=== PATIENT | female | born 2000 ===

== ENCOUNTER 2022-04-15 23:46 | Inpatient (IN) ==
[2022-04-16] MEDS ORDERED: Rocuronium Bromide 10 MG/ML (10ML VIAL) ONE (00:05)
[2022-04-16 00:25] LABS: Mean Corpuscular HGB CONC 33.5 g/dL (32.0-36.0); Mean Corpuscular Hemoglobin 30.4 pg (25.0-35.0); Mean Corpuscular Volume 90.7 fl (78.0-98.0); Mean Platelet Volume 10.1 fL (7.4-10.4); Platelet Count 289 10x3/uL (130-400); RBC Distribution Width 11.1 % (11.5-14.5); Red Blood Cell (RBC) Count 4.27 mill/uL (4.00-5.20); White Blood Cell (WBC) Count 18.9 10x3/uL (4.8-10.8)
[2022-04-16] MEDS ORDERED: Ketamine 50 MG/ML (10ML VIAL) ONE (00:31)
[2022-04-16 00:37] LABS: ALT (SGPT) 78 U/L (8-55); AST (SGOT) 191 U/L (5-30); Albumin 4.5 g/dL (3.5-5.0); Alkaline Phosphatase 105 U/L (40-100); Anion Gap 17 mmol/L (10-20); BUN (Urea Nitrogen) 8 mg/dL (8.4-21.0); Bilirubin, Total 0.5 mg/dL (0.2-1.2); Calc. Creatinine Clearance 0 mL/min (70-130); Calcium 8.6 mg/dL (7.8-10.44); Carbon Dioxide 18 mmol/L (22-29); Chloride 109 mmol/L (98-107); Estimated GFR 114; Globulin 3.1 g/dL (2.4-3.5); Glucose 193 mg/dL (70-105); Potassium 3.2 mmol/L (3.5-5.1); Protein, Total 7.6 g/dL (6.0-8.3); Sodium 141 mmol/L (136-145)
[2022-04-16 00:39] LABS: Acetaminophen Less than 10.0 mcg/mL (10.0-30.0); Alcohol 234 mg/dL (Less than 10); Salicylate Less than 8.0 mg/dL (15.0-30.0)
[2022-04-16] MEDS ORDERED: Fentanyl 100 MCG/2 ML VIAL ONE (00:41)
[2022-04-16] MEDS ORDERED: Fentanyl CADD 100 ML IV SCH (00:45)
[2022-04-16 01:08] LABS: Lymphocytes 51 % (28-48); MDiff Complete? YES; Monocytes 10 % (0-4); Neutrophil 38 % (31-61)
[2022-04-16 01:19] LABS: Bilirubin Negative (Negative); Blood, Urine Negative (Negative); Clarity Clear (Clear); Glucose, Urine (Dipstick) Normal (Negative); Ketone, Urine Negative (Negative); Leukocyte Negative Leu/uL (Negative); Nitrite Negative (Negative); Protein, Urine (Dipstick) Negative (Neg-Trace); Specific Gravity, Urine 1.007 (1.002-1.036); Urobilinogen Normal mg/dL (Less than 2); pH, Urine 5.5 (5.0-9.0)
[2022-04-16 01:26] LABS: Pregnancy Test - Urine (BHCG) Negative (Negative); Pregu Control Background? CLEAR/WHITE (CLR/WHITE); Pregu Control Bar Appear? YES (CONTROL BAR); Specific Gravity 1.007 (1.002-1.036)
[2022-04-16 01:28] LABS: Amphetamine Not Detected (NotDetected); Barbiturates Screen Not Detected (NotDetected); Benzodiazepine Screen Not Detected (NotDetected); Cocaine Metabolite Screen Not Detected (NotDetected); Methadone Not Detected (NotDetected); Methamphetamine Not Detected (NotDetected); Opiate Screen Not Detected (NotDetected); Oxycodone Screen Not Detected (NotDetected); Phencyclidine (PCP) Not Detected (NotDetected); THC/Cannabinoid Screen Detected (NotDetected); Tricyclic Screen Not Detected (NotDetected)
[2022-04-16 01:30] LABS: Actual Bicarbonate (HCO3a) 17.8 mEq/L (22-28); Analyzer IN Cardio ER; Base Excess (BEa) -3.8 mEq/L (-2.0 to +3.0); Carboxyhemoglobin (COHb) 0.3 gm% (0.0-3.0); Hemoglobin (Hb) 14.3 g/dL (11.4-15.4); O2 Tension (PaO2), arterial 423.8 mmHg (80.0-100.0); Potassium - ABG Lab 3.03 mmol/L (3.70-5.30); pH, Arterial 7.48 (7.35-7.45)
[2022-04-16 01:40] LABS: ALV-art Gradient -97.925 mmHg (0-20); CO2 Tension 24.5 mmHg (35.0-45.0); Puncture Site LRA
[2022-04-16] MEDS ORDERED: Piperacillin/Tazobactam 3.375 GM VIAL ONE (01:42)
[2022-04-16] MEDS ORDERED: Ondansetron PF 4 MG/2 ML Vial IVP PRN (01:46)
[2022-04-16] MEDS ORDERED: Acetaminophen 325 MG TAB PER TUBE PRN (01:46)
[2022-04-16 01:51] LABS: SARS-CoV-2 NAA Rapid Test Not Detected (NotDetected)
[2022-04-16] MEDS ORDERED: Electrolyte Replacement Protocol 1 EACH IVPB PRN (01:53)
[2022-04-16] MEDS ORDERED: Ventilator Sedation Protocol 1 EACH FS SCH (02:00)
[2022-04-16] MEDS ORDERED: Midazolam HCl 2 mg/2 ml Vial SLOW IVP PRN (02:03)
[2022-04-16] MEDS ORDERED: Propofol BOLUS 1,000 MG/100 ML VIAL IV PRN (02:15)
[2022-04-16] MEDS ORDERED: Propofol 1,000 MG/100 ML VIAL IV PRN (02:15)
[2022-04-16] MEDS ORDERED: Morphine 4 MG/ML VIAL SLOW IVP PRN (02:15)
[2022-04-16 02:20] LABS: Magnesium 2.4 mg/dL (1.7-2.2)
[2022-04-16] MEDS ORDERED: Thiamine HCl 200 MG/2 ML VIAL SLOW IVP SCH (03:00)
[2022-04-16] MEDS ORDERED: Sodium Chloride 0.9% 1,000 ML IV SCH (03:00)
[2022-04-16] MEDS: Potassium Chloride 20 MEQ in Premix Bag 1 BAG IVPB SCH ×2 (03:14→05:27)
[2022-04-16] MEDS: Sodium Chloride 0.9% 1,000 ML IV SCH ×2 (03:19→13:28)
[2022-04-16 03:46] LABS: #Basophils 0.1 thou/uL (0.0-0.2); #Lymphocytes 1.6 thou/uL (1.20-3.40); #Monocytes 0.8 thou/uL (0.11-0.59); #Neutrophils 8.3 thou/uL (1.40-6.50); %Basophils 0.5 % (0.0-1.0); %Eosinophils 0.1 % (0.0-10.0); %Lymphocytes 14.8 % (28.0-48.0); %Monocytes 7.6 % (0.0-4.0); Hemoglobin 13.4 g/dL (12.0-16.0); Mean Corpuscular HGB CONC 32.3 g/dL (32.0-36.0); Mean Corpuscular Hemoglobin 29.6 pg (25.0-35.0); Mean Corpuscular Volume 91.6 fl (78.0-98.0); Mean Platelet Volume 10.2 fL (7.4-10.4); Platelet Count 177 10x3/uL (130-400); RBC Distribution Width 11.2 % (11.5-14.5); Red Blood Cell (RBC) Count 4.54 mill/uL (4.00-5.20); White Blood Cell (WBC) Count 10.8 10x3/uL (4.8-10.8)
[2022-04-16 03:51] LABS: INR-International Normal Ratio 1.2; PTT 25.4 sec (22.9-36.1); Prothrombin Time 15.7 sec (12.0-14.7)
[2022-04-16 04:10] LABS: ALT (SGPT) 72 U/L (8-55); AST (SGOT) 162 U/L (5-30); Albumin 4.1 g/dL (3.5-5.0); Alkaline Phosphatase 92 U/L (40-100); Anion Gap 16 mmol/L (10-20); BUN (Urea Nitrogen) 5 mg/dL (8.4-21.0); Bilirubin, Total 0.5 mg/dL (0.2-1.2); Calc. Creatinine Clearance 0 mL/min (70-130); Calcium 7.3 mg/dL (7.8-10.44); Carbon Dioxide 17 mmol/L (22-29); Chloride 114 mmol/L (98-107); Estimated GFR 130; Globulin 3.2 g/dL (2.4-3.5); Glucose 120 mg/dL (70-105); Magnesium 1.7 mg/dL (1.7-2.2); Potassium 3.5 mmol/L (3.5-5.1); Protein, Total 7.3 g/dL (6.0-8.3); Sodium 143 mmol/L (136-145)
[2022-04-16 04:30] VITALS: BMI 22.3
[2022-04-16 05:07] LABS: Lactic Acid 1.6 mmol/L (0.5-2.2)
[2022-04-16] MEDS ORDERED: Piperacillin/Tazobactam 3.375 GM in Sodium Chloride 0.9% 100 ML IVPB SCH (06:00)
[2022-04-16] MEDS ORDERED: Magnesium 2 GM/50 ML(in water) 2 GM in Premix Bag 1 BAG IVPB SCH (08:00)
[2022-04-16] MEDS ORDERED: Folic Acid 1 MG TAB PER TUBE SCH (09:00)
[2022-04-16] MEDS ORDERED: Famotidine 20 MG TAB PER TUBE SCH (09:00)
[2022-04-16 12:54] VITALS: TEMP 98.6
[2022-04-17] MEDS ORDERED: Thiamine 100 MG TAB PER TUBE SCH (09:00)
== END 2022-04-16 15:25 | disposition home or self-care (01) | DRG 896 ==
LOC: ERS 23:46 → CCU 04-16 01:44
PROVIDERS: ADMIT Internal Medicine; ATTEND Internal Medicine
PROC: HZ2ZZZZ Detoxification Services for Substance Abuse Treatment (ICD-10-PCS; principal; 2022-04-16)
PROC: 5A1935Z Respiratory Ventilation, Less than 24 Consecutive Hours (ICD-10-PCS; 2022-04-16)
PROC: 0BH17EZ Insertion of Endotracheal Airway into Trachea, Via Natural or Artificial Opening (ICD-10-PCS; 2022-04-16)
PROC: 0D9670Z Drainage of Stomach with Drainage Device, Via Natural or Artificial Opening (ICD-10-PCS; 2022-04-16)
DX: F10.129 Alcohol abuse with intoxication, unspecified (principal); G92.8 Other toxic encephalopathy; J96.01 Acute respiratory failure with hypoxia; E87.20 Acidosis, unspecified; Z20.822 Contact with and (suspected) exposure to COVID-19; F32.A Depression, unspecified; I89.0 Lymphedema, not elsewhere classified; F12.10 Cannabis abuse, uncomplicated; E87.6 Hypokalemia; D72.829 Elevated white blood cell count, unspecified; Y90.7 Blood alcohol level of 200-239 mg/100 ml; Z78.1 Physical restraint status; Z71.41 Alcohol abuse counseling and surveillance of alcoholic; Z71.51 Drug abuse counseling and surveillance of drug abuser
CPT/HCPCS: 36415; 36600; 70450; 71045; 72125; 80053; 80306; 80307; 81003; 81025; 82805; 83605; 83735; 85025; 85610; 85730; 87040; 87086; 93005; 94002; J1650; J2543; J3010; J3411; J3475; J3480; J3490; J7050; U0002